=== PATIENT | female | born 1965 | race Caucasian/White ===

== ENCOUNTER → 2016-12-20 | Outpatient (CLI) | payer BC ==
--- NOTE | 2016-12-23 12:04 | MM ---
Reason for exam: screening (asymptomatic). Last mammogram was performed 1 year and 1 month ago. History: Patient is postmenopausal. Physical Findings: A clinical breast exam by your physician is recommended on an annual basis and results should be correlated with mammographic findings. MG Screening Mammo w CAD Bilateral CC and MLO view(s) were taken. Prior study comparison: December 04, 2015, bilateral MG screening mammo w CAD. November 11, 2014, bilateral MG screening mammo w CAD. The breast tissue is heterogeneously dense. This may lower the sensitivity of mammography. Finding: There are typically benign calcifications in the left breast. No significant changes in finding since December 04, 2015 and November 11, 2014. ASSESSMENT: Benign, BI-RAD 2 RECOMMENDATION: Routine screening mammogram of both breasts in 1 year.
== END | disposition home or self-care (01) ==
LOC: RADMAMWWP 15:00
PROVIDERS: ATTEND Obstetrics & Gynecology
DX: Z12.31 Encounter for screening mammogram for malignant neoplasm of breast (principal)

== ENCOUNTER → 2018-03-17 | Outpatient (CLI) | payer BC ==
[2018-03-17 08:04] VITALS: BP 124/60; PULSE 77; TEMP 96.3; BMI 23.7
--- NOTE | 2018-03-17 08:46 | P.HPOB ---
History of Present Illness H&P Date: 03/17/18 Chief Complaint: The patient is here for her routine gynecologic exam and mammogram. This is a 52-year-old G2 PII with an LMP of 2007. The patient is here to establish with this office. She is status post tubal sterilization. Her last pelvic exam was about one year ago. She is status post endometrial ablation and has been amenorrheic since it was done. She is without gynecologic complaints. She denies any significant hot flashes. On 10/29/2017 she had blood drawn showing an FSH of 18.4 and estradiol of 231.6. Review of Systems She did lose about 10 pounds near the time she was diagnosed with hyperthyroidism during the past year. Her weight typically is between 135 and 140. She denies respiratory, cardiac, or G.I. problems. 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 She has no other history of STDs. History of Any Multi-Drug Resistant Organisms: None Reported Past Surgical History: Bladder Surgery (Bladder suspension), Tubal Ligation, Uterine Ablation (2007) Additional Past Surgical History / Comment(s): Colonoscopy 2014. Past Anesthesia/Blood Transfusion Reactions: Previous Problems w/ Anesthesia, Motion Sickness Additional Past Anesthesia/Blood Transfusion Reaction / Comment(s): TOLD HER BLOODPRESSURE DROPS. Past Psychological History: No Psychological Hx Reported Smoking Status: Never smoker Past Alcohol Use History: Rare (10 per year) Past Drug Use History: None Reported Additional History: She has been since 2007 and this is her 2nd marriage. 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 - Past Family History Mother Family Medical History: COPD Father Family Medical History: Congestive Heart Failure (CHF) Brother(s) Family Medical History: Myocardial Infarction ([place]) Additional Family Medical History / Comment(s): Another brother also had an [place]. Medications and Allergies Home Medications Medication Instructions Recorded Confirmed Type Methimazole [Tapazole] mg PO DAILY 03/17/18 History Allergies Allergy/AdvReac Type Severity Reaction Status Date / Time ciprofloxacin [From Cipro] Allergy Unknown STOMACH & Verified 03/17/18 07:57 LEG PAIN, SWELLING LEGS Sulfa (Sulfonamide Allergy Unknown Rash/Hives Verified 03/17/18 07:57 Antibiotics) Exam Vital Signs Temp Pulse BP 03/17/18 08:00 96.3 F L 77 124/60 Intake and Output 03/16/18 03/17/18 03/17/18 22:59 06:59 14:59 Other: Weight 60.781 kg Height 5'3", weight 134 pounds, BMI 23.7. This is a well-developed well-nourished white female who is alert and oriented times 3 in no acute distress. HEENT: Within normal limits. NECK: Supple without mass or thyromegaly. CHEST AND LUNGS: Clear to auscultation. HEART: Regular rate and rhythm. BREASTS: Are without mass or discharge. AXILLARY EXAM: Negative for adenopathy. BACK: Negative for CVA tenderness. ABDOMEN: Soft, nontender, without palpable masses. PELVIC EXAM: Normal external genitalia. Cervix and vagina appear normal. Cervix appears multiparous. There is no unusual discharge. There is no evidence of prolapse. The uterus is midposition, nongravid size and nontender. There are no palpable adnexal masses or tenderness. RECTAL EXAM:rectovaginal exam is negative for mass or tenderness and is negative for occult blood. EXTREMITIES: Nontender. IMPRESSION: 1. 52-year-old female who is premenopausal with amenorrhea following endometrial ablation in 2007. 2. Normal gynecologic exam. 3. Previous tubal sterilization PLAN: 1. Pap smear was performed. 2. Self breast awareness was discussed with the patient. 3. Screening mammogram will be done today. 4. Osteoporosis prevention was discussed. 5. She will return in one year.
--- NOTE | 2018-03-19 10:56 | MM ---
Reason for exam: screening (asymptomatic). Last mammogram was performed 1 year and 3 months ago. History: Patient is postmenopausal. MG 3D Screening Mammo W/Cad Bilateral CC and MLO view(s) were taken. Prior study comparison: December 20, 2016, bilateral MG screening mammo w CAD. December 04, 2015, bilateral MG screening mammo w CAD. There are scattered fibroglandular densities. No significant changes when compared with prior studies. ASSESSMENT: Negative, BI-RAD 1 RECOMMENDATION: Routine screening mammogram of both breasts in 1 year.
== END ==
LOC: WWCWWP 07:37
PROVIDERS: ATTEND Obstetrics & Gynecology
DX: Z12.31 Encounter for screening mammogram for malignant neoplasm of breast (principal)
CPT/HCPCS: 77063; 77067

== ENCOUNTER 2019-02-28 15:05 | Emergency (ER) | payer BC ==
[2019-02-28 15:25] VITALS: BP 123/70; PULSE 80; RESP 18; TEMP 98.1
[2019-02-28 16:08] LABS: Appearance,Urine Cloudy (Clear); Bacteria,Urine Occasional /hpf; Bilirubin,Urine Negative (Negative); Blood,Urine Small (Negative); Color,Urine Colorless; Glucose,Urine (UA) Negative (Negative); Ketones,Urine Negative (Negative); Leukocyte Esterase,Urine Large (Negative); Mucus,Urine Rare /hpf; Nitrite,Urine Negative (Negative); PH, Urine 6.5 (5.0-8.0); Protein,Urine Negative (Negative); RBC,Urine 1 /hpf (0-5); Specific Gravity,Urine 1.004 (1.001-1.035); Urobilinogen,Urine <2.0 mg/dL (<2.0)
[2019-02-28] MEDS ORDERED: CEPHALEXIN 500MG STARTER PACK 4 CAP BTL PO STA (16:29)
--- NOTE | 2019-02-28 16:32 | ED ---
Female Urogenital HPI - General Chief complaint: Urogenital Stated complaint: Urogenital Time Seen by Provider: 02/28/19 15:28 Source: patient Mode of arrival: ambulatory Limitations: no limitations - History of Present Illness Initial comments: Patient is a 53-year-old female presenting to the emergency department with a chief complaint of UTI symptoms. Patient reports frequent UTIs over the past month. With the most recent one being slightly over 2 weeks ago. Patient reports pain with urination, increased urgency or frequency. Patient reports mild suprapubic discomfort and states that her "bladder feels always full". Patient is able to void without issues. Patient denies any nausea or vomiting. Patient denies back or flank pain. Patient denies any vaginal discharge or bleeding. Patient denies any fevers night sweats or chills. Patient denies taking any medication to alleviate the symptoms. - Related Data Home Medications Medication Instructions Recorded Confirmed Methimazole [Tapazole] mg PO DAILY 03/17/18 Previous Rx's Medication Instructions Recorded Cephalexin [Keflex] 250 mg PO Q8HR #21 capsule 02/28/19 Allergies Allergy/AdvReac Type Severity Reaction Status Date / Time ciprofloxacin [From Cipro] Allergy Unknown STOMACH & Verified 02/28/19 15:22 LEG PAIN, SWELLING LEGS Sulfa (Sulfonamide Allergy Unknown Rash/Hives Verified 02/28/19 15:22 Antibiotics) Review of Systems ROS Statement: Those systems with pertinent positive or pertinent negative responses have been documented in the HPI. ROS Other: All systems not noted in ROS Statement are negative. 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 She has no other history of STDs. History of Any Multi-Drug Resistant Organisms: None Reported Past Surgical History: Bladder Surgery, Tubal Ligation, Uterine Ablation Additional Past Surgical History / Comment(s): Colonoscopy 2014. Past Anesthesia/Blood Transfusion Reactions: Previous Problems w/ Anesthesia, Motion Sickness Additional Past Anesthesia/Blood Transfusion Reaction / Comment(s): TOLD HER BLOODPRESSURE DROPS. Past Psychological History: No Psychological Hx Reported Smoking Status: Never smoker Past Alcohol Use History: Rare Past Drug Use History: None Reported - Past Family History Mother Family Medical History: COPD Father Family Medical History: Congestive Heart Failure (CHF) Brother(s) Family Medical History: Myocardial Infarction ([place]) Additional Family Medical History / Comment(s): Another brother also had an [place]. General Exam Limitations: no limitations General appearance: alert, in no apparent distress Head exam: Present: atraumatic, normocephalic, normal inspection Eye exam: Present: normal appearance Pupils: Present: normal accommodation ENT exam: Present: normal exam, mucous membranes moist, normal external ear exam Neck exam: Present: normal inspection, full ROM Respiratory exam: Present: normal lung sounds bilaterally Cardiovascular Exam: Present: regular rate, normal rhythm, normal heart sounds GI/Abdominal exam: Present: soft, tenderness (Suprapubic tenderness). Absent: distended Extremities exam: Present: normal inspection, full ROM Back exam: Present: normal inspection Neurological exam: Present: alert, oriented X3 Psychiatric exam: Present: normal affect, normal mood Skin exam: Present: warm, intact, normal color Course Vital Signs 02/28/19 02/28/19 15:22 16:50 Temperature 98.1 F 98.1 F Pulse Rate 80 80 Respiratory 18 18 Rate Blood Pressure 123/70 123/70 O2 Sat by Pulse 98 98 Oximetry Medical Decision Making - Medical Decision Making Patient is a 53-year-old female presenting to emergency Department with a chief complaint of UTI symptoms. Patient reports her symptoms haven't time over the past day with increased severity. Patient reports increased urgency frequency or dysuria. Patient denies any hematuria or hematochezia or melena. Patient denies fever or chills. Physical examination there is only mild superior tenderness with no flank pain or back pain. Patient is stable. UA is indicative of pulmonary leukocyte esterase, white blood cells and no nitrates. Patient will be treated with Keflex. Patient given a dose here. Strict return parameters were thoroughly discussed the patient was understanding and agreeable. Case discussed physician. - Lab Data Lab Results 02/28/19 Range/Units 15:30 Urine Color Colorless Urine Appearance Cloudy H (Clear) Urine pH 6.5 (5.0-8.0) Ur Specific [place] 1.004 (1.001-1.035) Urine Protein Negative (Negative) Urine Glucose (UA) Negative (Negative) Urine Ketones Negative (Negative) Urine Blood Small H (Negative) Urine Nitrite Negative (Negative) Urine Bilirubin Negative (Negative) Urine Urobilinogen <2.0 (<2.0) mg/dL Ur Leukocyte Esterase Large H (Negative) Urine RBC 1 (0-5) /hpf Urine WBC >182 H (0-5) /hpf Urine WBC Clumps Moderate H (None) /hpf Urine Bacteria Occasional H (None) /hpf Urine Mucus Rare H (None) /hpf Disposition Clinical Impression: Urinary tract infection Disposition: HOME SELF-CARE Condition: Stable Instructions (If sedation given, give patient instructions): Urinary Tract Infection in Women (ED) Additional Instructions: Please take prescribed medication as directed. Please follow with primary care. Please return to emergency department if symptoms worsen Prescriptions: Cephalexin [Keflex] 250 mg PO Q8HR #21 capsule Is patient prescribed a controlled substance at d/c from ED?: No Referrals: Safia Leonard MD [Primary Care Provider] - 1-2 days Time of Disposition: 16:32
== END 2019-02-28 16:50 | disposition home or self-care (01) ==
LOC: EC 15:05
DX: N39.0 Urinary tract infection, site not specified (principal); E07.9 Disorder of thyroid, unspecified; Z79.890 Hormone replacement therapy; Z88.1 Allergy status to other antibiotic agents; Z88.2 Allergy status to sulfonamides; Z86.19 Personal history of other infectious and parasitic diseases; Z98.51 Tubal ligation status; Z98.890 Other specified postprocedural states
CPT/HCPCS: 81001; 87077; 87086; 87186; 99283

== ENCOUNTER → 2019-03-03 | Outpatient (CLI) | payer BC ==
--- NOTE | 2019-03-04 09:39 | XR ---
EXAMINATION TYPE: XR KUB DATE OF EXAM: 03/03/2019 COMPARISON: None HISTORY: R 10.30 TECHNIQUE: Supine abdomen FINDINGS: Surgical clip is in the midline of the pelvis. Phleboliths within the left hemipelvis. Norm al bowel gas is present. There is a surgical clip in the left upper quadrant of the abdomen. Fecal de bris is within the colon. Psoas margins are normal. No mass effect is evident. Surgical clips appear typical for tubal ligation. With the clip in the left upper quadrant of the abd omen, correlation with surgical history is recommended. IMPRESSION: 1. No suspicious abnormality to suggest renal or ureteral stones.
== END | disposition home or self-care (01) ==
LOC: RADXRMAIN 16:46
PROVIDERS: ATTEND Internal Medicine
DX: R10.30 Lower abdominal pain, unspecified (principal)
CPT/HCPCS: 74018

== ENCOUNTER → 2019-03-30 | Outpatient (CLI) | payer BC ==
[2019-03-30 08:07] VITALS: BP 114/60; PULSE 74; RESP 18; TEMP 97.8; BMI 25.8
--- NOTE | 2019-03-30 08:50 | P.HPOB ---
History of Present Illness H&P Date: 03/30/19 Chief Complaint: The patient is here for her routine gynecologic exam and ma mmogram. This is a 53-year-old with an LMP of 2007. The patient is status post tubal ligation and endometrial ablation. She has been amenorrheic since her endometrial ablation. She has noticed greater hot flashes during the past month and these occur mostly at night. She states she had 4 urinary tract infections within a 1 month period starting in January. She was treated with 4 different courses of antibiotics during that time. She started taking Cystex which she thinks may be helping avoid urinary tract infections. She has noticed more friction with sexual intercourse and sex can be painful because of this. Review of Systems The patient has gained 12 pounds over the last year. She denies respiratory, cardiac, or G.I. problems. Past Medical History Past Medical History: No Reported History, Thyroid Disorder Additional Past Medical History / Comment(s): Hyperthyroidism. 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 She has no other history of STDs. History of Any Multi-Drug Resistant Organisms: None Reported Past Surgical History: Bladder Surgery, Tubal Ligation, Uterine Ablation Additional Past Surgical History / Comment(s): Bladder suspension surgery 2007. Colonoscopy 2014(next after 10yrs). Past Anesthesia/Blood Transfusion Reactions: Previous Problems w/ Anesthesia, Motion Sickness Additional Past Anesthesia/Blood Transfusion Reaction / Comment(s): TOLD HER BLOODPRESSURE DROPS. Past Psychological History: No Psychological Hx Reported Smoking Status: Never smoker Past Alcohol Use History: Rare (4 per year) Past Drug Use History: None Reported Additional History: She has been since 2007 and this is her second marriage. 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 - Past Family History Mother Family Medical History: COPD Father Family Medical History: Congestive Heart Failure (CHF) Brother(s) Family Medical History: Myocardial Infarction ([place]) Additional Family Medical History / Comment(s): Another brother also had an [place]. Medications and Allergies Home Medications Medication Instructions Recorded Confirmed Type Methimazole [Tapazole] 5 mg PO DAILY 03/17/18 03/30/19 History Methenamine/Sodium Salicylate 1 each PO DAILY 03/30/19 03/30/19 History [Cystex Tablet] Allergies Allergy/AdvReac Type Severity Reaction Status Date / Time ciprofloxacin [From Cipro] Allergy Unknown STOMACH & Verified 03/30/19 08:07 LEG PAIN, SWELLING LEGS Sulfa (Sulfonamide Allergy Unknown Rash/Hives Verified 03/30/19 08:07 Antibiotics) Exam Vital Signs Temp Pulse Resp BP Pulse Ox 03/30/19 08:00 97.8 F 74 18 114/60 98 Intake and Output 03/29/19 03/30/19 03/30/19 22:59 06:59 14:59 Other: Weight 66.224 kg Height 5 feet 3 inches, weight 146 pounds, BMI 25.9. This is a well-developed well-nourished white female who is alert and oriented times 3 in no acute distress. HEENT: Within normal limits. NECK: Supple without mass or thyromegaly. CHEST AND LUNGS: Clear to auscultation. HEART: Regular rate and rhythm. BREASTS: Are without mass or discharge. AXILLARY EXAM: Negative for adenopathy. BACK: Negative for CVA tenderness. ABDOMEN: Soft, nontender, without palpable masses. PELVIC EXAM: Normal external genitalia with minimal atrophy. Cervix and vagina appear normal with no significant atrophy. There is no unusual discharge. There is no evidence of prolapse. The bladder is well supported. The uterus is midposition, nongravid size and nontender. There are no palpable adnexal masses or tenderness. RECTAL EXAM: Rectovaginal exam is negative for mass or tenderness and is negative for occult blood. EXTREMITIES: Nontender. IMPRESSION: 1. 53-year-old perimenopausal female with mild vasomotor symptoms and normal gynecologic exam. 2. Multiple urinary tract infections 1-2 months ago. 3. Dyspareunia secondary to vaginal dryness. PLAN: 1. Pap smear was deferred since she had a normal one on 02/18/2018. 2. Self breast awareness was discussed with the patient. 3. Screening mammogram will be done today. 4. Osteoporosis prevention was discussed. I have stressed the importance of adequate calcium, vitamin D and regular exercise. Recommended amounts of calcium and vitamin D were also discussed. 5. Trial of Premarin vaginal cream 1-2 g intravaginally twice weekly. She will apply a small amount of this to the area of the urinary opening. The electronic prescription will be sent to my her pharmacy in [place]. 6. She was advised to return in one year for her annual well woman exam and as needed.
--- NOTE | 2019-03-31 11:28 | MM ---
Reason for exam: screening (asymptomatic). Last mammogram was performed 1 year ago. History: Patient is postmenopausal. Physical Findings: A clinical breast exam by your physician is recommended on an annual basis and results should be correlated with mammographic findings. MG 3D Screening Mammo W/Cad Bilateral CC and MLO view(s) were taken. Prior study comparison: March 17, 2018, bilateral MG 3d screening mammo w/cad. December 20, 2016, bilateral MG screening mammo w CAD. The breast tissue is heterogeneously dense. This may lower the sensitivity of mammography. No significant changes when compared with prior studies. ASSESSMENT: Benign, BI-RAD 2 RECOMMENDATION: Routine screening mammogram of both breasts in 1 year.
== END | disposition home or self-care (01) ==
LOC: WWCWWP 07:50
PROVIDERS: ATTEND Obstetrics & Gynecology
DX: Z12.31 Encounter for screening mammogram for malignant neoplasm of breast (principal)
CPT/HCPCS: 77063; 77067

== ENCOUNTER → 2020-01-10 | Outpatient (CLI) | payer BC ==
--- NOTE | 2020-01-10 18:29 | BD ---
EXAMINATION TYPE: Axial Bone Density DATE OF EXAM: 01/10/2020 COMPARISON: NONE CLINICAL HISTORY: POSTMENOPAUSAL SCREENING Height: 5 FT 3 IN Weight: 145 FRAX RISK QUESTIONS: Alcohol (3 or more units per day): NO Family History (Parent hip fracture): YES Glucocorticoids (More than 3mos): NO (Ex: prednisone, prednisolone, methylprednisolone, dexamethasone, and hydrocortisone). History of Fracture in Adulthood: NO Secondary Osteoporosis: 1. Type 1 Diabetes: NO 2. Hyperthyroidism: YES 3. Menopause before 45: NO 4. Malnutrition: NO 5. Chronic liver disease: NO Rheumatoid Arthritis: NO Current Tobacco Use: NO RISK FACTORS HISTORY OF: Family History of Osteoporosis: NO Active: NO Postmenopausal woman: UNSURE ABLATION AGE 42 NO REAL SYMPTOMS MEDICATIONS: Thyroid Medications: YES Which medication: TAPAZOLE How Lon YEARS Additional Medications: THYROID MEDS, Additional History: EXAM MEASUREMENTS: Bone mineral densitometry was performed using the [employer] System. Bone mineral density as measured about the Lumbar spine is: ----- L1-L4(G/cm2): 1.015 T Score Values are as follows: ----- L2: -1.9 ----- L3: -1.5 ----- L4: -1.0 ----- L1-L4: -1.4 BASELINE Bone mineral density about the R hip (g/cm2): 0.796 Bone mineral density about the L hip (g/cm2): 0.774 T Score values are as follows: -----R Neck: -1.7 -----L Neck: -1.9 -----R Total: -1.4 -----L Total: -1.4 BASELINE IMPRESSION: Osteopenia (T Score between -2.5 and -1). There is slightly increased risk of fracture and the patient may be considered for treatment. Re-Screen 2-5 years. NOTE: T-SCORE=SD OF THE YOUNG ADULT MEAN.
== END | disposition home or self-care (01) ==
LOC: RADBDWWP 08:31
PROVIDERS: ATTEND Internal Medicine
DX: M85.80 Other specified disorders of bone density and structure, unspecified site (principal)
CPT/HCPCS: 77080

== ENCOUNTER → 2020-04-18 | Outpatient (CLI) | payer BC ==
[2020-04-18 16:42] VITALS: BP 132/80; PULSE 71; RESP 18; TEMP 98.1
--- NOTE | 2020-04-18 17:40 | P.HPOB ---
History of Present Illness H&P Date: 04/18/20 Chief Complaint: The patient is here for her routine gynecologic exam. This is a 54-year-old with an LMP of 2007. The patient is status post tubal ligation and endometrial ablation. She was prescribed Premarin vaginal cream for vaginal dryness with sexual intercourse as well as for recurrent UTIs. She states she use the prescription once or twice, but she has forgotten to use it since then. She would like to restart it. She is otherwise without complaints. Review of Systems The patient's weight has been stable over the last year. She denies respiratory, cardiac, or G.I. problems. Past Medical History Past Medical History: No Reported History, Cancer, Thyroid Disorder Additional Past Medical History / Comment(s): Hyperthyroidism. Basal cell skin cancer removed from her back. Osteopenia. 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 She has no other history of STDs. History of Any Multi-Drug Resistant Organisms: None Reported Past Surgical History: Bladder Surgery, Tubal Ligation, Uterine Ablation Additional Past Surgical History / Comment(s): Bladder suspension surgery 2007. Removal of basal cell skin cancer from her back. Colonoscopy 2014(next after 10yrs). Past Anesthesia/Blood Transfusion Reactions: Previous Problems w/ Anesthesia, Mo tion Sickness Additional Past Anesthesia/Blood Transfusion Reaction / Comment(s): TOLD HER BLOODPRESSURE DROPS. Past Psychological History: No Psychological Hx Reported Smoking Status: Never smoker Past Alcohol Use History: Occasional (2 per month) Past Drug Use History: None Reported Additional History: She has been since 2007 in this is her second marriage. 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 - Past Family History Mother Family Medical History: COPD Father Family Medical History: Congestive Heart Failure (CHF) Brother(s) Family Medical History: Myocardial Infarction ([place]) Additional Family Medical History / Comment(s): Another brother also had an [place]. Medications and Allergies Home Medications Medication Instructions Recorded Confirmed Type Methimazole [Tapazole] 5 mg PO DAILY 03/17/18 04/18/20 History [place] 2 tab PO DAILY 04/18/20 04/18/20 History Allergies Allergy/AdvReac Type Severity Reaction Status Date / Time ciprofloxacin [From Cipro] Allergy Unknown STOMACH & Verified 04/18/20 16:07 LEG PAIN, SWELLING LEGS Sulfa (Sulfonamide Allergy Unknown Rash/Hives Verified 04/18/20 16:07 Antibiotics) Exam Vital Signs Temp Pulse Resp BP Pulse Ox 04/18/20 16:41 98.1 F 71 18 132/80 97 Height 5 feet 3 inches, weight 146 pounds, BMI 26. This is a well-developed well-nourished white female who is alert and oriented times 3 in no acute distress. HEENT: Within normal limits. NECK: Supple without mass or thyromegaly. CHEST AND LUNGS: Clear to auscultation. HEART: Regular rate and rhythm. BREASTS: Are without mass or discharge. AXILLARY EXAM: Negative for adenopathy. BACK: Negative for CVA tenderness. ABDOMEN: Soft, nontender, without palpable masses. PELVIC EXAM: Normal external genitalia with minimal atrophy. Cervix and vagina appear normal. There is no unusual discharge. There is no evidence of prolapse. The uterus is midposition, nongravid size and nontender. There are no palpable adnexal masses or tenderness. RECTAL EXAM: Rectovaginal exam is negative for mass or tenderness and is negative for occult blood. EXTREMITIES: Nontender. IMPRESSION: 1. 54-year-old menopausal female status post endometrial ablation and tubal ligation with normal gynecologic exam. 2. History of osteopenia. 3. Vaginal dryness with intercourse following menopause. PLAN: 1. Pap smear cotest was performed. 2. Self breast awareness was discussed with the patient. 3. Screening mammogram is due and the order slip was given to the patient for this. 4. She will be restarted on Premarin vaginal cream 1 g intravaginally 2 times weekly. The electronic prescription will be sent to [facility] in [place]. 5. Osteoporosis prevention was discussed. I have stressed the importance of ad equate calcium, vitamin D and regular exercise. Recommended amounts of calcium and vitamin D were also discussed. She has done a bone density test ordered by Dr. Leonard in December 2019. 6. She was advised to return in one year for her annual well woman exam.
--- NOTE | 2020-04-25 17:42 | P.PN ---
Progress Note - Text Progress Note Date: 04/25/20 OUTPATIENT FOLLOW-UP NOTE TEST(S)/RESULTS: Test results from 04/18/2020 include negative Pap smear and negative high risk HPV testing. METHOD OF NOTIFICATION: A message with these results was left on the patient's voicemail. PATIENT COMMENTS: [] DIAGNOSIS: Negative Pap smear cotest DISCUSSION: A reminder was left on the message to have the mammogram done. PLAN: She was advised to return in one year for her annual well woman exam. Pap smear cotest will be done in 4-5 years.
== END | disposition home or self-care (01) ==
LOC: WWCWWP 15:48
PROVIDERS: ATTEND Obstetrics & Gynecology
DX: Z53.9 Procedure and treatment not carried out, unspecified reason (principal)

== ENCOUNTER → 2020-06-26 | Outpatient (CLI) | payer BC ==
--- NOTE | 2020-06-27 13:22 | MM ---
Reason for exam: screening (asymptomatic). Last mammogram was performed 1 year and 3 months ago. History: Patient is postmenopausal and history of other cancer. Took hormonal contraceptives for 14 years. Physical Findings: A clinical breast exam by your physician is recommended on an annual basis and results should be correlated with mammographic findings. MG 3D Screening Mammo W/Cad Bilateral CC and MLO view(s) were taken. Prior study comparison: March 30, 2019, bilateral MG 3d screening mammo w/cad. March 17, 2018, bilateral MG 3d screening mammo w/cad. The breast tissue is heterogeneously dense. This may lower the sensitivity of mammography. No significant changes when compared with prior studies. ASSESSMENT: Benign, BI-RAD 2 RECOMMENDATION: Routine screening mammogram of both breasts in 1 year.
== END | disposition home or self-care (01) ==
LOC: RADMAMWWP 16:40
PROVIDERS: ATTEND Obstetrics & Gynecology
DX: Z12.31 Encounter for screening mammogram for malignant neoplasm of breast (principal)
CPT/HCPCS: 77063; 77067

== ENCOUNTER → 2020-12-15 | Outpatient (CLI) | payer BC ==
--- NOTE | 2020-12-15 09:10 | US ---
EXAMINATION TYPE: US pelvis complete transvag DATE OF EXAM: 12/15/2020 COMPARISON: NONE CLINICAL HISTORY: R93.[address] fluid seen in endo ablation done in 2007. TECHNIQUE: Transvaginal (TV) and Transabdominal (TA) . Transabdominal sonographic images of the pel vis were acquired. Transvaginal sonographic images were medically necessary to better assess the fol lowing anatomy: Uterus and ovaries. EXAM MEASUREMENTS: Uterus: 6.9 x 2.7 x 4.1 cm Endometrial Stripe: .3 cm 1. Uterus: Anteverted heterogenous 2. Endometrium: appears to have small amount of fluid. 3. Right Ovary: Obscured by overlying bowel gas 4. Left Ovary: Obscured by overlying bowel gas 5. Bilateral Adnexa: wnl 6. Posterior cul-de-sac: wnl IMPRESSION: Small amount of endometrial fluid.
== END | disposition home or self-care (01) ==
LOC: RADUSWWP 08:22
PROVIDERS: ATTEND Obstetrics & Gynecology
DX: R93.89 Abnormal findings on diagnostic imaging of other specified body structures (principal)
CPT/HCPCS: 76830; 76856

== ENCOUNTER → 2021-05-22 | Outpatient (CLI) | payer BC ==
[2021-05-22 15:27] VITALS: BP 107/65; PULSE 87; RESP 16; TEMP 98.1
--- NOTE | 2021-05-22 18:04 | P.HPOB ---
History of Present Illness H&P Date: 05/22/21 Chief Complaint: The patient is here for her routine gynecologic exam. This is a 55-year-old with an LMP of 2007. The patient is status post tubal ligation and endometrial ablation. She states she has been using estrogen cream for vaginal dryness and this has been helpful. She also started using PO macrodantin (prescribed by her urologist) after iintercourse to help prevent UTIs and this has been helpful.She is without complaints and denies PMB. She had an ultrasound in November of 2020 that showed small endometrial fluid. Review of Systems The patient has lost 5 pounds over the last year. She denies respiratory, cardiac, or G.I. problems. Past Medical History Past Medical History: Cancer, Thyroid Disorder Additional Past Medical History / Comment(s): Hyperthyroidism. Basal cell skin cancer removed from her back. Osteopenia. Recurrent UTIs. 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 She has no other history of STDs. History of Any Multi-Drug Resistant Organisms: None Reported Past Surgical History: Bladder Surgery, Tubal Ligation, Uterine Ablation Additional Past Surgical History / Comment(s): Bladder suspension surgery 2007. Removal of basal cell skin cancer from her back. Colonoscopy 2014(next after 10yrs). Past Anesthesia/Blood Transfusion Reactions: Previous Problems w/ Anesthesia, Motion Sickness Additional Past Anesthesia/Blood Transfusion Reaction / Comment(s): TOLD HER BLOODPRESSURE DROPS. Past Psychological History: No Psychological Hx Reported Smoking Status: Never smoker Past Alcohol Use History: Occasional (0-1 month.) Past Drug Use History: None Reported Additional History: She has been since 2007 and this is her second marriage. 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 - Past Family History Mother Family Medical History: COPD Father Family Medical History: Congestive Heart Failure (CHF) Brother(s) Family Medical History: Myocardial Infarction (VT) Additional Family Medical History / Comment(s): Another brother also had an VT. Medications and Allergies Home Medications Medication Instructions Recorded Confirmed Type Estrogens, Conjugated Cream 1 gm VAGINAL DIRECTED #1 tube 04/18/20 05/22/21 Rx [Premarin Cream] Calcium Carbonate/Vitamin D3 1 tab PO DAILY 05/22/21 05/22/21 History [Calcium 500 mg Chewable Tablet] Multivitamins, Thera [Multivitamin 1 tab PO DAILY 05/22/21 05/22/21 History (formulary)] Allergies Allergy/AdvReac Type Severity Reaction Status Date / Time ciprofloxacin [From Cipro] Allergy Unknown STOMACH & Verified 05/22/21 15:17 LEG PAIN, SWELLING LEGS Sulfa (Sulfonamide Allergy Unknown Rash/Hives Verified 05/22/21 15:17 Antibiotics) Exam Vital Signs Temp Pulse Resp BP 05/22/21 15:20 98.1 F 87 16 107/65 Intake and Output 05/22/21 05/22/21 05/22/21 06:59 14:59 22:59 Other: Weight 63.957 kg Height 5 feet 3 inches, weight 141 pounds, BMI 25.0. This is a well-developed well-nourished white female who is alert and oriented times 3 in no acute distress. HEENT: Within normal limits. NECK: Supple without mass or thyromegaly. CHEST AND LUNGS: Clear to auscultation. HEART: Regular rate and rhythm. BREASTS: Are without mass or discharge. AXILLARY EXAM: Negative for adenopathy. BACK: Negative for CVA tenderness. ABDOMEN: Soft, nontender, without palpable masses. PELVIC EXAM: Normal external genitalia with mild atrophy. Cervix and vagina appear normal with mild atrophy. There is no unusual discharge. There is no evidence of prolapse. The uterus is midposition, nongravid size and nontender. There are no palpable adnexal masses or tenderness. RECTAL EXAM: Rectovaginal exam is negative for mass or tenderness and is negative for occult blood. EXTREMITIES: Nontender. IMPRESSION: 1. 55-year-old menopausal female with normal gynecologic exam. 2. Vaginal dryness improved with estradiol cream. 3. Recurrent UTIs improved with post coital Macrodantin, as prescribed by her urologist. 4. History of small endometrial fluid noted by pelvic ultrasound on 12/15/2020. This was an incidental finding after a CT scan was done for a urologic indication. This is asymptomatic. 5. History of osteopenia. PLAN: 1. Pap smear was deferred since she had a negative Pap smear cotest on 04/18/2020. 2. Self breast awareness was discussed with the patient. We have also discussed symptoms associated with inflammatory breast cancer. 3. Screening mammogram will be due in approximately 2 months and the order slip was given to the patient for this. 4. She will continue to use estradiol vaginal cream as directed. The electronic prescription will be sent to [facility] in [place]. 5. Osteoporosis prevention was discussed. I have stressed the importance of adequate calcium, vitamin D and regular exercise. Recommended amounts of calcium and vitamin D were also discussed. Bone density was done on 01/10/2020 which showed osteopenia. This is to be repeated in 2-3 years. 6. Pelvic ultrasound will be done in November 2021. This is to follow-up on the small endometrial fluid noted on previous ultrasound done in November 2020. 7. She was advised to return in one year for her annual well woman exam.
== END ==
LOC: WWCWWP 15:07
PROVIDERS: ATTEND Obstetrics & Gynecology
DX: Z01.419 Encounter for gynecological examination (general) (routine) without abnormal findings (principal); Z87.39 Personal history of other diseases of the musculoskeletal system and connective tissue; Z87.42 Personal history of other diseases of the female genital tract; Z88.1 Allergy status to other antibiotic agents; Z88.2 Allergy status to sulfonamides

== ENCOUNTER → 2021-07-23 | Outpatient (CLI) | payer BC ==
--- NOTE | 2021-07-24 10:05 | MM ---
Reason for exam: screening (asymptomatic). Last mammogram was performed 1 year and 1 month ago. History: Patient is postmenopausal and history of other cancer. Took hormonal contraceptives for 14 years. Taking estrogen beginning at age 53. Physical Findings: A clinical breast exam by your physician is recommended on an annual basis and results should be correlated with mammographic findings. MG 3D Screening Mammo W/Cad Bilateral CC and MLO view(s) were taken. Prior study comparison: June 26, 2020, bilateral MG 3d screening mammo w/cad. March 30, 2019, bilateral MG 3d screening mammo w/cad. The breast tissue is heterogeneously dense. This may lower the sensitivity of mammography. Benign appearing bilateral calcifications. No significant changes when compared with prior studies. ASSESSMENT: Benign, BI-RAD 2 RECOMMENDATION: Routine screening mammogram of both breasts in 1 year.
== END ==
LOC: WWCWWP 08:21
PROVIDERS: ATTEND Obstetrics & Gynecology
DX: Z12.31 Encounter for screening mammogram for malignant neoplasm of breast (principal); Z88.1 Allergy status to other antibiotic agents; Z88.2 Allergy status to sulfonamides
CPT/HCPCS: 77063; 77067

== ENCOUNTER → 2021-09-24 | Outpatient (CLI) | payer BC ==
--- NOTE | 2021-09-24 15:25 | XR ---
EXAMINATION TYPE: XR chest 2V DATE OF EXAM: 09/24/2021 COMPARISON: NONE HISTORY: Cough. COVID infection 2 weeks ago. TECHNIQUE: Frontal and lateral views of the chest are obtained. FINDINGS: There is no focal air space opacity, pleural effusion, or pneumothorax seen. The cardiac silhouette size is within normal limits. The osseous structures are intact. Surgical clips in the e pigastric region noted. IMPRESSION: No acute cardiopulmonary process.
== END | disposition home or self-care (01) ==
LOC: RADXRMAIN 11:21
PROVIDERS: ATTEND Internal Medicine
DX: R05.9 Cough, unspecified (principal); Z86.16 Personal history of COVID-19
CPT/HCPCS: 71046

== ENCOUNTER → 2021-12-03 | Outpatient (CLI) | payer BC ==
--- NOTE | 2021-12-03 09:05 | US ---
EXAMINATION TYPE: US pelvis complete transvag DATE OF EXAM: 12/03/2021 COMPARISON: US date12/15/2020 CLINICAL HISTORY: R93.8 endometrial thinning. TECHNIQUE: Transvaginal (TV) and Transabdominal (TA) . Transabdominal sonographic images of the pel vis were acquired. Transvaginal sonographic images were medically necessary to better assess the fol lowing anatomy: ovaries Date of LMP: ablation 2007, postmenopausal. EXAM MEASUREMENTS: Uterus: 7.5 x 2.5 x 3.7 cm Endometrial Stripe: 0.5 cm Right Ovary: not identified Left Ovary: not identified 1. Uterus: Anteverted wnl 2. Endometrium: wnl 3. Right Ovary: not identified 4. Left Ovary: not identified 5. Bilateral Adnexa: wnl 6. Posterior cul-de-sac: no free fluid IMPRESSION: No significant abnormality appreciated.
--- NOTE | 2021-12-05 09:50 | P.PN ---
Progress Note - Text Progress Note Date: 12/05/21 OUTPATIENT FOLLOW-UP NOTE TEST(S)/RESULTS: Pelvic ultrasound on 12/03/2021 was unremarkable. METHOD OF NOTIFICATION: The patient was notified by phone. PATIENT COMMENTS: She denies any postmenopausal bleeding. DIAGNOSIS: Normal pelvic ultrasound. DISCUSSION: Previous CT scan of the abdomen and pelvis and ultrasound done last year showed possible small fluid in the endometrium. Being that this years ultrasound was normal we will discontinue yearly pelvic ultrasounds and now do them only as needed for symptoms such as postmenopausal bleeding. She was instructed to call if she has any such problems. PLAN: As above. She will return in the spring for her yearly well woman examination.
== END | disposition home or self-care (01) ==
LOC: RADUSWWP 08:19
PROVIDERS: ATTEND Obstetrics & Gynecology
DX: R93.89 Abnormal findings on diagnostic imaging of other specified body structures (principal)
CPT/HCPCS: 76830; 76856

== ENCOUNTER → 2023-08-19 | Outpatient (CLI) | payer BC ==
[2023-08-19 14:23] VITALS: BP 122/79; PULSE 73; RESP 17; TEMP 98.2
--- NOTE | 2023-08-19 15:16 | P.HPOB ---
History of Present Illness H&P Date: 08/19/23 Chief Complaint: The patient is here for her routine gynecologic exam and ma mmogram. This is a 57-year-old with an LMP of 2007. The patient is without gynecologic complaints and denies any postmenopausal bleeding. the patient was started on Fosamax because of focal osteoporosis. She took this in late 2022, but discontinued it because of bad right back and sciatic-type pains after each dose. She took a total of 3 doses. Review of Systems The patient has gained 4 pounds over the last year. She denies respiratory, cardiac, or G.I. problems. Past Medical History Past Medical History: Cancer, Thyroid Disorder Additional Past Medical History / Comment(s): Hyperthyroidism. Basal cell skin cancer removed from her back. Osteopenia. Recurrent UTIs. 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 She has no other history of STDs. History of Any Multi-Drug Resistant Organisms: None Reported Past Surgical History: Bladder Surgery, Tubal Ligation, Uterine Ablation Additional Past Surgical History / Comment(s): Bladder suspension surgery 2007. Removal of basal cell skin cancer from her back. Colonoscopy 2014(next after 10yrs). Past Anesthesia/Blood Transfusion Reactions: Previous Problems w/ Anesthesia, Motion Sickness Additional Past Anesthesia/Blood Transfusion Reaction / Comment(s): TOLD HER BLOODPRESSURE DROPS. Past Psychological History: No Psychological Hx Reported Smoking Status: Never smoker Past Alcohol Use History: Rare (0-3 per year.) Past Drug Use History: None Reported Additional History: She has been since 2007 and this is her second marriage. She and her are not sexually active. 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 - Past Family History Mother Family Medical History: COPD Father Family Medical History: Congestive Heart Failure (CHF) Brother(s) Family Medical History: Myocardial Infarction (MA) Additional Family Medical History / Comment(s): Another brother also had an MA. Medications and Allergies Home Medications Medication Instructions Recorded Confirmed Type Calcium Carbonate/Vitamin D3 1 tab PO DAILY 05/22/21 08/19/23 History [Calcium 500 mg Chewable Tablet] Multivitamins, Thera [Multivitamin 1 tab PO DAILY 05/22/21 08/19/23 History (formulary)] Allergies Allergy/AdvReac Type Severity Reaction Status Date / Time ciprofloxacin [From Cipro] Allergy Unknown STOMACH & Verified 08/19/23 14:07 LEG PAIN, SWELLING LEGS Sulfa (Sulfonamide Allergy Unknown Rash/Hives Verified 08/19/23 14:07 Antibiotics) Exam Vital Signs Temp Pulse Resp BP Pulse Ox 08/19/23 14:07 98.2 F 73 17 122/79 97 Intake and Output 08/19/23 08/19/23 08/19/23 06:59 14:59 22:59 Other: Weight 67.585 kg height 5 feet 3 inches, weight 149 pounds, BMI 26.4. This is a well-developed well-nourished white female who is alert and oriented times 3 in no acute distress. HEENT: Within normal limits. NECK: Supple without mass or thyromegaly. CHEST AND LUNGS: Clear to auscultation. HEART: Regular rate and rhythm. BREASTS: Are without mass or discharge. AXILLARY EXAM: Negative for adenopathy. BACK: Negative for CVA tenderness. ABDOMEN: Soft, nontender, without palpable masses. PELVIC EXAM: Normal external genitalia with mild atrophy. Cervix and vagina appear normal with mild atrophy. There is no unusual discharge. There is no evidence of prolapse. The uterus is midposition, nongravid size and nontender. There are no palpable adnexal masses or tenderness. RECTAL EXAM: rectovaginal exam is negative for mass or tenderness and is negative for occult blood. EXTREMITIES: Nontender. IMPRESSION: 1. 57-year-old menopausal female with normal gynecologic exam. 2. History of focal osteoporosis. She did not tolerate alendronate due to right back and sciatic-like pains after each dose. PLAN: 1. Pap smear was deferred since she had a negative Pap smear cotest on 04/18/2020. 2. Self breast awareness was discussed with the patient. We have also discussed symptoms associated with inflammatory breast cancer. 3. screening mammogram will be done today. 4. Osteoporosis management was discussed. I have stressed the importance of adequate calcium, vitamin D and regular exercise. Recommended amounts of calcium and vitamin D were also discussed. we have discussed the option of non- bisphosphonate medications. She would like to go without prescription medications at this time. We will plan on repeating the bone density test in approximately 1-1/2 years. If the numbers are significantly worsening at that time, we will consider a non-bisphosphonate medication. 5. She was advised to return in one year for her annual well woman exam.
--- NOTE | 2023-08-21 12:58 | MM ---
Reason for Exam: Screening (asymptomatic). Last mammogram was performed 1 year(s) and 1 month(s) ago. Patient History: Menarche at age 10. First Full-Term at age 28. Postmenopausal. Estrogen, from age 53 until age 56. Patient used Hormonal Contraceptives for 14 years. Risk Values: Rosalva 5 year model risk: 1.6%. NCI Lifetime model risk: 9.3%. Prior Study Comparison: 06/26/2020 Bilateral Screening Mammogram, [facility]. 07/23/2021 Bilateral Screening Mammogram, [facility]. 07/30/2022 Bilateral MG 3D screening mammo w/cad, [facility]. Tissue Density: There are scattered areas of fibroglandular density. Findings: Analyzed By CAD. There is no suspicious group of microcalcifications or new suspicious mass in either breast. Overall Assessment: Negative, BI-RAD 1 Management: Screening Mammogram of both breasts in 1 year. . Patient should continue monthly self-breast exams. A clinical breast exam by your physician is recommended on an annual basis. This exam should not preclude additional follow-up of suspicious palpable abnormalities. Note on Rosalva scores and lifetime risk: 1. A Rosalva score greater than 3% is considered moderate risk. If this is the case, consider specialist referral to assess eligibility for a risk reducing agent. 2. If overall lifetime risk for the development of breast cancer is 20% or higher, the patient may qualify for future screening with alternating mammogram and breast MRI. Electronically signed and approved by: Kenneth Hou M.D. Radiologis
== END ==
LOC: WWCWWP 13:47
PROVIDERS: ATTEND Obstetrics & Gynecology
DX: Z01.419 Encounter for gynecological examination (general) (routine) without abnormal findings (principal); Z12.31 Encounter for screening mammogram for malignant neoplasm of breast; Z78.0 Asymptomatic menopausal state; Z87.310 Personal history of (healed) osteoporosis fracture; Z88.1 Allergy status to other antibiotic agents; Z88.2 Allergy status to sulfonamides; Z98.51 Tubal ligation status
CPT/HCPCS: 77063; 77067

== ENCOUNTER → 2024-06-02 | Day surgery (SDC) | payer BC ==
[2024-06-02 08:22] VITALS: RESP 16; TEMP 98.1
[2024-06-02 08:57] VITALS: BP 125/82; PULSE 61
--- NOTE | 2024-06-02 09:09 | P.PCN ---
Date of Procedure: 06/02/24 Preoperative Diagnosis: mild endometrial thickening Postoperative Diagnosis: same Procedure(s) Performed: attempted endometrial biopsy Anesthesia: none Surgeon: Orville Cam Estimated Blood Loss (ml): 0 Pathology: none sent Condition: stable Disposition: same day Indications for Procedure: Was a 58-year-old G2, P2 with an LMP of 2007. The patient states she was experiencing intermittent brief upper abdominal pains. She underwent a workup through her PCP which included liver and gallbladder testing. A pelvic ultrasound was also ordered to rule out ovarian problems. Pelvic ultrasound was done on 05/14/2024 at [facility]. That ultrasound showed an endometrium that measures 0.75 cm. The patient has had a history of an endometrial ablation years ago. She had a previous pelvic ultrasound in 2020 which showed small amount of endometrial fluid with an endometrial thickness of 3 mm. On 12/04/2021 the endometrial thickness was measured at 5 mm. Because of the mild endometrial thickening on her most recent ultrasound, she was scheduled for an endometrial biopsy. The patient denies any postmenopausal bleeding. She is not using any form of HRT or ERT. In the past she has used estrogen vaginal cream, but has not used this for quite some time. She denies taking any treatments for menopausal symptoms. Operative Findings: Cervix appears normal. The cervix was stenotic and endometrial biopsy was not successful because of this. Description of Procedure: Preprocedure vitals signs blood pressure 130/82, height 5 feet 3 inches, weight 148 pounds, temperature 98.1, pulse 74, pulse oximeter 99%. We have discussed the procedure in detail. We have discussed possible risks including bleeding, infection, as well as the possibility of uterine perforation and damage to surrounding structures. We have also discussed the possibility of not being able to complete the endometrial biopsy. All of her questions were answered. The patient was placed in the lithotomy position. Bimanual examination revealed a mid positioned uterus that was nongravid size. There are no palpable adnexal masses or tenderness. Speculum was inserted into the vagina and the cervix and vagina were prepped with Betadine solution. The anterior lip of the cervix was grasped with an Allis clamp. Several attempts were made to insert the 3 mm endometrial biopsy instrument into the uterine cavity, however the internal os of the cervix was stenotic. Attempt was made to use a small cervical dilator to probe the cervix. This could not be passed through the stenotic internal os with gentle pressure. The Allis clamp was put on the posterior lip of the cervix and the instruments again could not pass the internal cervical os with gentle pressure. At this time the procedure was aborted and was unsuccessful. Patient tolerated the procedure well. There were no specimens sent. Postprocedure vitals: Blood pressure 106/72, pulse 61, pulse oximeter 99%. We I had a discussion regarding the future plan. Since I think the endometrial ablation can potentially cause some changes in the appearance of the endometrium and because I cannot be certain as to whether they saw endometrial fluid or counted endometrial fluid in the measurement of the endometrium, we have chosen to repeat the ultrasound in approximately 3 months, near the time of her upcoming annual examination. The order slip for the pelvic ultrasound was given to the patient. I have asked her to have this done at [facility] so I can directly look at the images, if needed. If there is significant endometrial thickening or if she is having any postmenopausal bleeding, we will plan referral for possible hysteroscopy with D&C. She was instructed to call if she has unusual pain, unusual vaginal bleeding, fever, or problems. She was di scharged home in stable condition.
== END ==
LOC: WWCWWP 07:58
PROVIDERS: ATTEND Obstetrics & Gynecology
DX: R10.10 Upper abdominal pain, unspecified (principal)

== ENCOUNTER → 2024-06-17 | Outpatient (CLI) | payer BC ==
--- NOTE | 2024-06-17 16:56 | US ---
EXAMINATION TYPE: US transvaginal DATE OF EXAM: 06/17/2024 COMPARISON: NONE CLINICAL INDICATION: Female, 58 years old with history of R93.8 ABNORMAL FINDINGS ON DIAG IMAGING; pr evious US at [facility] in April 2024 showed possible endo fluid, patient has h/o ablation in 2007, gets mild pain on and off in pelvis, G0 TECHNIQUE: TV. Transabdominal grayscale sonographic images of the pelvis were acquired. Doppler imaging: Not performed. FINDINGS: Date of LMP: 2007 EXAM MEASUREMENTS: Uterus: 5.5 x 2.5 x 2.4 cm Endometrial Stripe: 0.3 cm Right Ovary: not seen Left Ovary: not seen 1. Uterus: Anteverted. 8mm cervical nabothian cyst noted. Otherwise, no gross abnormality. 2. Endometrium: wnl, no abnormal fluid collection identified along the expected endometrium. 3. Right Ovary: not seen due to atrophy and bowel gas 4. Left Ovary: not seen due to atrophy and bowel gas 5. Bilateral Adnexa: wnl 6. Posterior cul-de-sac: wnl IMPRESSION: 1. Thin endometrial stripe. No focal areas of hematometra are identified. 2. Unable to visualize either ovary probably due to combination of bowel gas and postmenopausal atrop hy. [facility], Workstation: [email or web address], 06/17/2024 4:54 PM
--- NOTE | 2024-06-18 10:45 | P.PN ---
Progress Note - Text Progress Note Date: 06/18/24 OUTPATIENT FOLLOW-UP NOTE TEST(S)/RESULTS:Pelvic ultrasound done on 06/17/24 was unremarkable. The endometrial stripe was measuring 0.3 cm. No fluid within the endometrium was identified. METHOD OF NOTIFICATION: The patient was notified by phone on 06/18/2024. PATIENT COMMENTS: She is happy to hear this result. She denies any postmenopausal bleeding. DIAGNOSIS: Follow-up for previous possible borderline endometrial thickness on U/S done at [facility]. No endometrial thickness with no evidence of endometrial fluid. DISCUSSION: No further workup is necessary. We do not need to repeat the pelvic ultrasound unless she is having postmenopausal bleeding. PLAN: She will follow up in approximately 3 to 4 months for her annual well examination.
== END | disposition home or self-care (01) ==
LOC: RADUSWWP 16:03
PROVIDERS: ATTEND Obstetrics & Gynecology
DX: R93.89 Abnormal findings on diagnostic imaging of other specified body structures (principal)
CPT/HCPCS: 76830

== ENCOUNTER → 2024-08-24 | Outpatient (CLI) | payer BC ==
[2024-08-24 16:15] VITALS: BP 124/81; PULSE 69; RESP 17; TEMP 98
--- NOTE | 2024-08-24 17:08 | P.HPOB ---
History of Present Illness H&P Date: 08/24/24 Chief Complaint: The patient is here for her routine gynecologic exam and ma mmogram. This is a 58-year-old G2, P2 with an LMP of 2007. Patient is without gynecologic complaints and denies any postmenopausal bleeding. The patient had an ultrasound done at [facility] on 05/14/2024 because of upper abdominal pains. Endometrial thickness was found to be 0.75 cm. An endometrial biopsy was attempted, but failed due to cervical stenosis. The ultrasound was r epeated at [facility] on 06/17/2024 and showed a thin endometrial thickness of 3 mm with no fluid. She states she has not had any postmenopausal bleeding. Review of Systems The patient's weight has been stable over the last year. She denies respiratory, cardiac, or G.I. problems. Past Medical History Past Medical History: Cancer, Thyroid Disorder Additional Past Medical History / Comment(s): Hyperthyroidism. Basal cell skin cancer removed from her back. Osteopenia. Recurrent UTIs. 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 She has no other history of STDs. History of Any Multi-Drug Resistant Organisms: None Reported Past Surgical History: Bladder Surgery, Tubal Ligation, Uterine Ablation Additional Past Surgical History / Comment(s): Bladder suspension surgery 2007. Removal of basal cell skin cancer from her back. Colonoscopy 2014(next after 10yrs). Past Anesthesia/Blood Transfusion Reactions: Previous Problems w/ Anesthesia, Motion Sickness Additional Past Anesthesia/Blood Transfusion Reaction / Comment(s): TOLD HER BLOODPRESSURE DROPS. Past Psychological History: No Psychological Hx Reported Smoking Status: Never smoker Past Alcohol Use History: None Reported Past Drug Use History: None Reported Additional History: She has been since 2007 and this is her second marriage. She and her are not sexually active. 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 - Past Family History Mother Family Medical History: COPD Father Family Medical History: Congestive Heart Failure (CHF) Brother(s) Family Medical History: Myocardial Infarction ([place]) Additional Family Medical History / Comment(s): Another brother also had an [place]. Medications and Allergies Home Medications Medication Instructions Recorded Confirmed Type Calcium Carbonate/Vitamin D3 1 tab PO DAILY 05/22/21 08/24/24 History [Calcium 500 mg Chewable Tablet] Multivitamins, Thera [Multivitamin 1 tab PO DAILY 05/22/21 08/24/24 History (formulary)] Allergies Allergy/AdvReac Type Severity Reaction Status Date / Time ciprofloxacin [From Cipro] Allergy Unknown STOMACH & Verified 08/24/24 16:13 LEG PAIN, SWELLING LEGS Sulfa (Sulfonamide Allergy Unknown Rash/Hives Verified 08/24/24 16:13 Antibiotics) Exam Vital Signs Temp Pulse Resp BP Pulse Ox 08/24/24 16:13 98 F 69 17 124/81 97 Intake and Output 08/24/24 08/24/24 08/24/24 06:59 14:59 22:59 Other: Weight 67.585 kg Height 5 feet 3 inches, weight 149 pounds, BMI 26.4. This is a well-developed well-nourished white female who is alert and oriented times 3 in no acute distress. HEENT: Within normal limits. NECK: Supple without mass or thyromegaly. CHEST AND LUNGS: Clear to auscultation. HEART: Regular rate and rhythm. BREASTS: Are without mass or discharge. AXILLARY EXAM: Negative for adenopathy. BACK: Negative for CVA tenderness. ABDOMEN: Soft, nontender, without palpable masses. PELVIC EXAM: Normal external genitalia with mild to moderate atrophy. Cervix and vagina appear normal with mild atrophy. There is no unusual discharge. There is no evidence of prolapse. The uterus is midposition, nongravid size and nontender. There are no palpable adnexal masses or tenderness. RECTAL EXAM: Rectovaginal exam is negative for mass or tenderness and is negative for occult blood. EXTREMITIES: Nontender. IMPRESSION: 1. 58-year-old menopausal female with normal gynecologic exam. 2. Focal osteoporosis with intolerance to alendronate and this was discontinued after 3 doses. PLAN: 1. Pap smear cotest was performed. 2. Self breast awareness was discussed with the patient. We have also discussed symptoms associated with inflammatory breast cancer. 3. Screening mammogram was done today and was benign. 4. Osteoporosis management was discussed. I have stressed the importance of adequate calcium, vitamin D and regular exercise. Recommended amounts of calcium and vitamin D were also discussed. We will plan on repeating the bone density test in February, which will be 2 years after her last 1. If it shows worsening of the bone density, we will consider nonbisphosphonate options. 5. She states she is scheduled for a colonoscopy on 09/16/2024. 6. She was advised to return in one year for her annual well woman exam.
== END ==
LOC: WWCWWP 15:24
PROVIDERS: ATTEND Obstetrics & Gynecology
DX: Z01.419 Encounter for gynecological examination (general) (routine) without abnormal findings (principal); Z12.31 Encounter for screening mammogram for malignant neoplasm of breast; M81.0 Age-related osteoporosis without current pathological fracture; Z88.1 Allergy status to other antibiotic agents; Z88.2 Allergy status to sulfonamides; Z78.0 Asymptomatic menopausal state

== ENCOUNTER → 2024-08-24 | Outpatient (CLI) | payer BC ==
--- NOTE | 2024-08-24 16:00 | MM ---
Reason for Exam: Screening (asymptomatic). Last screening mammogram was performed 12 month(s) ago. Patient History: Menarche at age 10. First Full-Term at age 28. Postmenopausal. Estrogen, from age 53 until age 56. Patient used Hormonal Contraceptives for 14 years. Risk Values: Rosalva 5 year model risk: 1.7%. NCI Lifetime model risk: 9.1%. Prior Study Comparison: 07/23/2021 Bilateral Screening Mammogram, [facility]. 07/30/2022 Bilateral MG 3D screening mammo w/cad, [facility]. 08/19/2023 Bilateral MG 3D screening mammo w/cad, [facility]. Tissue Density: There are scattered areas of fibroglandular density. Findings: Analyzed By CAD. Areas of asymmetric density are unchanged. There is no suspicious group of microcalcifications or new suspicious mass in either breast. Overall Assessment: Benign, BI-RAD 2 Management: Screening Mammogram of both breasts in 1 year. Patient should continue monthly self-breast exams. A clinical breast exam by your physician is recommended on an annual basis. This exam should not preclude additional follow-up of suspicious palpable abnormalities. Note on Rosalva scores and lifetime risk: 1. A Rosalva score greater than 3% is considered moderate risk. If this is the case, consider specialist referral to assess eligibility for a risk reducing agent. 2. If overall lifetime risk for the development of breast cancer is 20% or higher, the patient may qualify for future screening with alternating mammogram and breast MRI. [facility], , 08/24/2024 3:58 PM. Electronically signed and approved by: Shital Parson M.D. Radiologist
== END | disposition home or self-care (01) ==
LOC: RADMAMWWP 15:22
PROVIDERS: ATTEND Obstetrics & Gynecology
DX: Z12.31 Encounter for screening mammogram for malignant neoplasm of breast (principal); R92.323 Mammographic fibroglandular density, bilateral breasts; Z78.0 Asymptomatic menopausal state; Z92.0 Personal history of contraception
CPT/HCPCS: 77063; 77067